=== PATIENT | female | born 1985 | race African-American/Black ===

== ENCOUNTER 2016-11-13 06:06 | Inpatient (IN) | payer MEDICAID, OTHER ==
[~2016-11-13] VITALS: Ht 154.9 cm; Wt 73.0 kg
[2016-11-13] MEDS ORDERED: IV RINGERS,LACTATED 1000ML 1,000 ML IV SCH (06:33)
[2016-11-13 06:45] VITALS: BP 104/64
[2016-11-13] MEDS ORDERED: LIDOCAINE 1% PF 30 ML VIAL. INJ PRN (06:45)
[2016-11-13] MEDS ORDERED: IBUPROFEN 600 MG TABLET. PO PRN (06:45)
[2016-11-13] MEDS ORDERED: BUTORPHANOL 2 MG/ML VIAL. IV PRN (06:45)
[2016-11-13] MEDS ORDERED: OXYTOCIN 30 UNIT/500 ML PREMIX 500 ML IV PRN ×2 (06:45→08:45)
[2016-11-13] MEDS ORDERED: fentaNYL PF VIAL 100 MCG/2 ML VIAL IV PRN (06:45)
[2016-11-13] MEDS ORDERED: TERBUTALINE 1 MG/ML VIAL. SQ PRN (06:45)
[2016-11-13] MEDS ORDERED: 0.9 % SODIUM CHLORIDE 10 ML DISP.SYRIN. IV PRN ×2 (06:45→08:45)
[2016-11-13 06:55] LABS: BILIRUBIN,URINE NEGATIVE (NEG); GLUCOSE,URINE NEGATIVE (NEG); NITRITE,URINE NEGATIVE (NEG); PH,URINE 7.5; PROTEIN,URINE NEGATIVE (NEG-TRACE)
[2016-11-13] MEDS: CLINDAMYCIN 900MG PREMIX 50 ML IV SCH ×2 (07:03→14:00)
[2016-11-13 07:11] LABS: BACTERIA,URINE FEW /HPF (0-FEW); RBC,URINE 20-40 /HPF (0-2); SQUAMOUS EPITHELIAL CELL,UR MANY /LPF
[2016-11-13 07:16] LABS: BARBITURATES NEG (NEG); BENZODIAZEPINES NEG (NEG); CANNABINOIDS NEG (NEG); COCAINE POS (NEG); METHADONE NEG (NEG); OPIATES NEG (NEG); PHENCYCLIDINE NEG (NEG)
[2016-11-13] MEDS ORDERED: PNV1TABL34 PO (07:31)
[2016-11-13 07:35] LABS: HEMATOCRIT 33.4 % (36.0-47.0); HEMOGLOBIN 11.3 g/dL (12.0-15.5); RED BLOOD COUNT 3.8 x10^6/uL (3.50-5.40); RED CELL DISTRIBUTION WIDTH 13.7 % (11.5-14.5); WHITE BLOOD COUNT 14.8 x10^3/uL (4.0-11.0)
[2016-11-13] MEDS ORDERED: diphenhydrAMINE HCL 25 MG CAPSULE PO PRN (08:45)
[2016-11-13] MEDS ORDERED: BENZOCAINE 20% TOPICAL AEROSOL SPRAY 57GM CAN. TP PRN (08:45)
[2016-11-13] MEDS ORDERED: MAGNESIUM HYDROXIDE 2,400 MG/30 ML ORAL.SUSP. PO PRN (08:45)
[2016-11-13] MEDS ORDERED: SIMETHICONE 80 MG TAB.CHEW PO PRN (08:45)
[2016-11-13] MEDS ORDERED: MAG HYDROX/ALUMINUM HYD/SIMETH 30 ML ORAL.SUSP PO PRN (08:45)
[2016-11-13] MEDS ORDERED: HYDROCORTISONE 1% TOPICAL OINTMENT 30GM TUBE. TP PRN (08:45)
[2016-11-13] MEDS ORDERED: PHENYLEPH/MINERAL OIL/PETROLAT RECTAL OINTMENT 28GM TUBE. RC PRN (08:45)
[2016-11-13] MEDS ORDERED: ACETAMINOPHEN 325 MG TABLET. PO PRN (08:45)
--- NOTE | 2016-11-13 08:49 | PDOC ---
VAGINAL DELIVERY DATE DATE: 11/13/16 TIME: 08:46 : 7 Para: 5 EDC: Nov 22, 2016 VAGINAL DELIVERY: VTX VACCUM ASSISTED: No PLACENTA: Spontaneous SEX: Female WEIGHT 6/11 Amniotic Fluid: Thick Meconium PAIN: Natural EPISIOTOMY: No EXTENSION: No EBL 400cc COMPLICATIONS None CONDITION Stable Signs of Intrauterine Infectio: None Shoulder Dystocia: No DIAGNOSIS TIUP del Problems: CATHRYN ALLISON MD November 13, 2016 08:49
--- NOTE | 2016-11-13 09:01 | PDOC1 ---
OB - History Hx of Present Care: Good Care Ultrasounds: Normal mid trimester US Obstetrical Complications: None Medical Complications: Other (Substance Abuse) Past Family/Social History * Past Medical, Surgical, Family and Obstetric Histories reviewed from chart. Blood Type: O+ Rubella: Immune RPR/VDRL: Negative GBS Status: Unknown HBsAG: Negative OB - Chief Complaint & HPI Date of Admission: Date of Admission: November 13, 2016 at 06:06 Chief Complaint/History : 7 Para: 5 EDC: Nov 22, 2016 Reason for admission: active labor Admission Nurse Assessment Rev: Yes Problems: OB - Admission Exam Physical Exam Vitals: VS - Last 72 Hours, by Label Date Time Temp Pulse Resp B/P (MAP) Pulse Ox O2 Delivery O2 Flow Rate FiO2 11/13/16 06:56 20 Room Air 11/13/16 06:45 98.1 88 20 104/64 (77) Room Air 98.1 HEENT: Normal, Nasal Mucosa Normal, Oropharynx Normal, Moist Membranes, Fontanelles Normal Heart: Regular Rate Lungs: Clear, Equal Abdomen: Gravid Extremities: Normal Pulses, No tenderness or swelling Reflexes: Normal Cervical Dilatation: 6cm Effacement: 75% Station: +1 Membranes: Intact Amniotic Fluid: Thick Meconium Heart Rate: Normal Accelerations: Accelerations Present Contractions on Admission: < 5 Minutes Apart Intensity: Firm Assessment/Plan Assessment/Plan TIUP Labor ACS CATHRYN ALLISON MD November 13, 2016 09:01
[2016-11-13] MEDS: IBUPROFEN 800 MG TABLET. PO SCH ×2 (11:54→21:28)
[2016-11-13 12:00] VITALS: BP 106/58
[2016-11-13 13:45] VITALS: BP 116/69
[2016-11-13] MEDS: HYDROcodone/APAP 5/325MG 1 TAB TABLET PO PRN ×3 (13:47→21:29)
[2016-11-13] MEDS: FERROUS SULFATE 325 MG TABLET. PO SCH (17:38)
[2016-11-13 19:38] VITALS: BP 85/47
[2016-11-13] MEDS: ZOLPIDEM 5 MG TABLET. PO PRN (21:28)
[2016-11-14 02:14] VITALS: BP 88/56
[2016-11-14] MEDS: HYDROcodone/APAP 5/325MG 1 TAB TABLET PO PRN ×3 (02:20→21:08)
[2016-11-14] MEDS: DOCUSATE SODIUM 100 MG CAPSULE. PO PRN ×3 (02:20→21:08)
[2016-11-14] MEDS: ZOLPIDEM 5 MG TABLET. PO PRN (02:20)
[2016-11-14 05:26] VITALS: BP 103/61
[2016-11-14 07:40] VITALS: BP 96/63
[2016-11-14] MEDS: FERROUS SULFATE 325 MG TABLET. PO SCH ×2 (07:54→18:09)
[2016-11-14] MEDS: IBUPROFEN 800 MG TABLET. PO SCH ×2 (07:54→18:09)
--- NOTE | 2016-11-14 11:43 | PDOC ---
OB Progress Note Date of Service 11/14/16 Time of Evaluation 1140 Notes Pt. feeling well. Pain controlled. Lochia minimal. Bottle feeding. Lab Laboratory Tests Test 11/13/16 06:30 11/13/16 07:00 11/14/16 04:53 Urine Collection Type Unknown Urine Color Yellow Urine Clarity Clear Urine pH 7.5 Urine Specific [place] 1.015 Urine Protein Negative mg/dL (NEG-TRACE) Urine Glucose (UA) Negative mg/dL (NEG) Urine Ketones (Stick) Negative mg/dL (NEG) Urine Blood Small (NEG) Urine Nitrite Negative (NEG) Urine Bilirubin Negative (NEG) Urine Urobilinogen Dipstick 1.0 mg/dL (0.2 mg/dL) Urine Leukocyte Esterase Moderate (NEG) Urine RBC 20-40 /HPF (0-2) Urine WBC 11-20 /HPF (0-4) Urine Squamous Epithelial Cells Many /LPF Urine Bacteria Few /HPF (0-FEW) Urine Opiates Screen Neg (NEG) Urine Methadone Screen Neg (NEG) Urine Barbiturates Neg (NEG) Urine Phencyclidine Screen Neg (NEG) Urine Amphetamine/Methamphetamine Neg (NEG) Urine Benzodiazepines Screen Neg (NEG) Urine Cocaine Screen Pos (NEG) Urine Cannabinoids Screen Neg (NEG) Urine Ethyl Alcohol Neg (NEG) White Blood Count 14.8 x10^3/uL (4.0-11.0) Red Blood Count 3.80 x10^6/uL (3.50-5.40) Hemoglobin 11.3 g/dL (12.0-15.5) Hematocrit 33.4 % (36.0-47.0) 30.0 % (36.0-47.0) Mean Corpuscular Volume 88 fL (79-100) Mean Corpuscular Hemoglobin 30 pg (25-35) Mean Corpuscular Hemoglobin Concent 34 g/dL (31-37) Red Cell Distribution Width 13.7 % (11.5-14.5) Platelet Count 276 x10^3/uL (140-400) Laboratory Tests Test 11/14/16 04:53 Hematocrit 30.0 % (36.0-47.0) Medications Current Medications Sodium Chloride (Normal Saline Flush) 3 ml QSHIFT PRN IV AFTER MEDS AND BLOOD DRAWS; Start 11/13/16 at 06:45 Ringer's Solution 1,000 ml @ 125 mls/hr Q8H IV Last administered on 11/13/16 06:51; Start 11/13/16 at 06:33; Stop 11/14/16 at 03:13; Status DC Butorphanol Tartrate (Stadol) 2 mg PRN Q1HR PRN IV Severe labor pain; Start at 06:45 Fentanyl Citrate (Fentanyl 2ml Vial) 100 mcg PRN Q30MIN PRN IV Severe pain Last administered on 11/13/16 06:56; Start 11/13/16 at 06:45 Terbutaline Sulfate (Brethine) 0.25 mg 1X PRN PRN SQ SEE COMMENTS; Start at 06:45; Stop 11/14/16 at 06:44; Status DC Lidocaine HCl 30 ml 1X PRN PRN INJ SEE COMMENTS; Start 11/13/16 at 06:45; Stop 11/15/16 at 06:44 Oxytocin/Sodium Chloride 500 ml @ 0 mls/hr CONT PRN PRN IV Post delivery bleeding Last administered on 11/13/16 06:57; Start 11/13/16 at 06:45 Ibuprofen (Motrin) 600 mg PRN Q6HRS PRN PO MODERATE PAIN; Start 11/13/16 at 06: 45 Clindamycin Phosphate 50 ml @ 100 mls/hr Q8HRS IV Last administered on 07:03; Start 11/13/16 at 07:00; Stop 11/13/16 at 14:11; Status DC Sodium Chloride (Normal Saline Flush) 10 ml QSHIFT PRN IV AFTER MEDS AND BLOOD DRAWS; Start 11/13/16 at 08:45 Oxytocin/Sodium Chloride 500 ml @ 62.5 mls/hr CONT PRN IV SEE I/O RECORD; Start 11/13/16 at 08:45; Stop 11/13/16 at 16:44; Status DC Acetaminophen (Tylenol) 650 mg PRN Q6HRS PRN PO MILD PAIN / TEMP; Start at 08:45 Ibuprofen (Motrin) 800 mg Q8HRS PO Last administered on 11/14/16 07:54; Start 11/13/16 at 09:00 Magnesium Hydroxide (Milk Of Magnesia) 2,400 mg PRN DAILY PRN PO CONSTIPATION; Start 11/13/16 at 08:45 Al Hydroxide/Mg Hydroxide (Mylanta Plus Xs) 30 ml PRN Q4HRS PRN PO HEARTBURN / GAS; Start 11/13/16 at 08:45 Simethicone (Gas-X) 80 mg PRN AFTMEALHC PRN PO GAS / BLOATING; Start 11/13/16 at 08:45 Diphenhydramine HCl (Benadryl) 25 mg PRN Q6HRS PRN PO ITCHING; Start 11/13/16 at 08:45 Benzocaine (Americaine) 1 spray PRN QID PRN TP TOPICAL PAIN Last administered on 11/14/16 05:15; Start 11/13/16 at 08:45 Phenyleph/Shark Oil/Min Oil/Petrol (Preparation H) 1 gómez PRN QID PRN RC RECTAL PAIN; Start 11/13/16 at 08:45 Hydrocortisone (Cortaid) 1 gómez PRN QID PRN TP RECTAL PAIN; Start 11/13/16 at 08 :45 Ferrous Sulfate (Feosol) 325 mg BIDWMEALS PO Last administered on 11/14/16 07: 54; Start 11/13/16 at 17:00 Zolpidem Tartrate (Ambien) 5 mg PRN QHS PRN PO INSOMNIA, MAY REPEAT X1 Last administered on 11/14/16 02:20; Start 11/13/16 at 08:45 Info (Do NOT chart on this placeholder) 1 ea 1X PRN PRN MC SEE COMMENTS; Start 11/13/16 at 08:45 Acetaminophen/ Hydrocodone Bitart (Lortab 5/325) 1 tab PRN Q4HRS PRN PO PAIN Last administered on 11/14/16 02:20; Start 11/13/16 at 08:45 Docusate Sodium (Colace) 100 mg PRN BID PRN PO CONSTIPATION Last administered on 11/14/16 07:54; Start 11/14/16 at 00:30 Active Scripts Active Reported Plus Iron Tablet (Pnv With Ca,No.72/Iron,Carb/Fa) 1 Each Tablet 1 Each PO DAILY Exam Abd: soft, non tender, fundus firm Assessment PPD#1 s/p Plan of Care: Continue current Tx, Mgmt MICA RIVERA Jr, MD November 14, 2016 11:43
[2016-11-14 16:35] VITALS: BP 108/76
[2016-11-14 21:09] VITALS: BP 95/57
[2016-11-15 05:12] VITALS: BP 86/59
--- NOTE | 2016-11-15 06:15 | PDOC3 ---
OB DISCHARGE SUMMARY DATE OF ADMISSION: 12/14/16 DATE OF DISCHARGE: 12/16/16 REASON FOR ADMISSION: Onset of labor PROCEDURES: None INTRAPARTUM PROCEDURES: Spontanous Vag Deliv OPERATIONS: None DISCHARGE DIAGNOSIS: Term Delivered DISCHARGE INFORMATION: Activity, Diet HOSPITAL COURSE Unremarkable CONDITION AT DISCHARGE Stable CATHRYN ALLISON MD November 15, 2016 06:14
[2016-11-15] MEDS ORDERED: NAPR500T PO (06:18)
[2016-11-15] MEDS ORDERED: HYDR-971 PO (06:18)
[2016-11-15 11:21] LABS: RPR REFLEX Non Reactive (Non Reactive)
[2016-11-15 11:56] VITALS: BP 101/66
[2016-11-15] MEDS: HYDROcodone/APAP 5/325MG 1 TAB TABLET PO PRN (14:53)
[2016-11-15 17:06] VITALS: BP 110/72
== END 2016-11-15 19:09 | disposition home or self-care (01) | DRG 775 ==
LOC: OBSVTOIN 06:06 → 3 SO LND 06:06
PROVIDERS: ADMIT Specialist; ATTEND Specialist
PROC: 10E0XZZ Delivery of Products of Conception, External Approach (ICD-10-PCS; principal; 2016-11-13)
DX: O77.0 Labor and delivery complicated by meconium in amniotic fluid (principal); Z37.0 Single live birth; Z3A.38 38 weeks gestation of pregnancy; Z88.0 Allergy status to penicillin
CPT/HCPCS: 36415; 81001; 85014; 85027; 86593; 86850; 86870; 86900; 86901; 86902; 87086; 92585; G0481; J2590; J3010; J3490; J7120